=== PATIENT | male | born 1955 | race Caucasian/White ===

== ENCOUNTER 2017-05-06 08:47 | Emergency (ER) | payer BC, MEDICAID ==
[2017-05-06] MEDS ORDERED: Ondansetron 4 MG/2 ML SDV IVPUSH ONE (08:50)
[2017-05-06] MEDS ORDERED: HYDROmorphone 0.5 MG/0.5 ML Syringe IVPUSH ONE (08:50)
[2017-05-06] MEDS ORDERED: Sodium Chloride 0.9% 1,000 ML IV SCH ×4 (09:00→12:00)
[2017-05-06] MEDS ORDERED: Ketorolac 30 MG/ML SDV IVPUSH ONE (09:40)
--- NOTE | 2017-05-06 10:58 | EDM.PDOC ---
ED HPI GENERAL MEDICAL PROBLEM - General Chief Complaint: Flank Pain Stated Complaint: KIDNEY STONE? Time Seen by Provider: 05/06/17 09:00 Source of Information: Reports: Patient, Family History Limitations: Reports: No Limitations - History of Present Illness INITIAL COMMENTS - FREE TEXT/NARRATIVE: pt arrived from the clinic with severe rt flank pain. He has a history of kidney stones and had lithotripsey 1 year ago with a large unpassable stone on the rt. 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 Onset: Today, Other ( started about 8 am. ) Duration: Hour(s):, Getting Worse Location: Reports: Abdomen, Other ( rt flank area. ) Associated Symptoms: Reports: Nausea/Vomiting, Other ( very sweaty. ) Right Flank Pain Score (Numeric/FACES): 7 - Related Data Allergies Allergy/AdvReac Type Severity Reaction Status Date / Time No Known Allergies Allergy Verified 05/06/17 09:10 Home Meds: Home Meds Cholecalciferol (Vitamin D3) [Vitamin D] 1,000 unit PO DAILY 12/18/13 [History] Glucosamine [Glucosamine Sulfate] 500 mg PO DAILY 11/24/14 [History] Quercetin Dihydrate 1 gm PO DAILY 11/24/14 [History] Vitamin B Complex 1 each PO DAILY 11/24/14 [History] Past Medical History Genitourinary History: Reports: BPH, Renal Calculus Musculoskeletal History: Reports: Fracture - Past Surgical History GI Surgical History: Reports: Hernia Repair/Other, Other (See Below) Other GI Surgeries/Procedures: hernia repair x3 Male Surgical History: Reports: Kidney Stone Extraction Social & Family History - Tobacco Use Smoking Status *Q: Never Smoker Second Hand Smoke Exposure: No - Recreational Drug Use Recreational Drug Use: No ED ROS GENERAL - Review of Systems Review Of Systems: See Below Constitutional: Reports: No Symptoms HEENT: Reports: No Symptoms Respiratory: Reports: No Symptoms Cardiovascular: Reports: No Symptoms Endocrine: Reports: No Symptoms GI/Abdominal: Reports: Abdominal Pain : Reports: Flank Pain Musculoskeletal: Reports: No Symptoms Skin: Reports: No Symptoms Neurological: Reports: No Symptoms ED EXAM, GI/ABD - Physical Exam Exam: See Below Text/Narrative:: Pt has very severe rt flank pain. he has not noted any blood in the urine. he did have a urine done at the clinic which showed some rbcs. Exam Limited By: No Limitations General Appearance: Alert, Anxious, Severe Distress Eyes: Bilateral: Normal Appearance, EOMI Ears: Normal TMs Nose: Normal Inspection Throat/Mouth: Normal Inspection Head: Atraumatic Neck: Normal Inspection Respiratory/Chest: No Respiratory Distress Cardiovascular: Regular Rate, Rhythm GI/Abdominal Exam: Soft, Other ( severe rt flank pain. ) (Male) Exam: Normal Inspection Rectal (Males) Exam: Deferred Back Exam: Normal Inspection Extremities: Normal Inspection Neurological: Alert, Oriented, Normal Cognition Course - Vital Signs Last Recorded V/S: Last Vital Signs Temp 36.2 C 05/06/17 09:09 Pulse 65 05/06/17 12:24 Resp 16 05/06/17 12:24 BP 150/79 H 05/06/17 12:24 Pulse Ox 97 05/06/17 12:24 - Orders/Labs/Meds Orders: Active Orders 24 hr Category Date Time Status Abdomen Pelvis wo Cont [CT] Stat Exams 05/06/17 09:40 Taken Renal Comp [US] Stat Exams 05/06/17 11:58 Taken Sodium Chloride 0.9% [Normal Saline] 1,000 ml Med 05/06/17 09:00 Active IV ASDIRECTED Sodium Chloride 0.9% [Normal Saline] 1,000 ml Med 05/06/17 09:45 Active IV ASDIRECTED Sodium Chloride 0.9% [Normal Saline] 1,000 ml Med 05/06/17 10:45 Active IV ASDIRECTED Sodium Chloride 0.9% [Normal Saline] 1,000 ml Med 05/06/17 12:00 Active IV ASDIRECTED Medication Orders Sodium Chloride (Normal Saline) 1,000 mls @ 999 mls/hr IV ASDIRECTED CIELO Last Admin: 05/06/17 09:05 Dose: 999 mls/hr Sodium Chloride (Normal Saline) 1,000 mls @ 999 mls/hr IV ASDIRECTED CIELO Last Admin: 05/06/17 10:19 Dose: 999 mls/hr Sodium Chloride (Normal Saline) 1,000 mls @ 999 mls/hr IV ASDIRECTED CIELO Last Admin: 05/06/17 12:21 Dose: 999 mls/hr Sodium Chloride (Normal Saline) 1,000 mls @ 999 mls/hr IV ASDIRECTED CIELO Labs: Laboratory Tests 05/06/17 05/06/17 Range/Units 09:00 09:00 WBC 5.9 (4.5-11.0) K/uL RBC 5.02 (4.30-5.90) M/uL Hgb 15.3 H (12.0-15.0) g/dL Hct 44.8 (40.0-54.0) % MCV 89 (80-98) fL MCH 31 (27-31) pg MCHC 34 (32-36) % Plt Count 333 (150-400) K/uL Neut % (Auto) 66 (36-66) % Lymph % (Auto) 20 L (24-44) % [place] % (Auto) 11 H (2-6) % Eos % (Auto) 3 (2-4) % Baso % (Auto) 1 (0-1) % Sodium 139 L (140-148) mmol/L Potassium 4.1 (3.6-5.2) mmol/L Chloride 104 (100-108) mmol/L Carbon Dioxide 28 (21-32) mmol/L Anion Gap 11.1 (5.0-14.0) mmol/L BUN 17 (7-18) mg/dL Creatinine 1.2 (0.8-1.3) mg/dL Est Cr Clr Drug Dosing 57.60 mL/min Estimated GFR (MDRD) > 60 (>60) Glucose 121 H (74-106) mg/dL Calcium 8.9 (8.5-10.1) mg/dL Total Bilirubin 0.5 (0.2-1.0) mg/dL AST 23 (15-37) U/L ALT 36 (12-78) U/L Alkaline Phosphatase 59 (46-116) U/L Total Protein 7.4 (6.4-8.2) g/dL Albumin 4.3 (3.4-5.0) g/dL Globulin 3.1 (2.3-3.5) g/dL Albumin/Globulin Ratio 1.4 (1.2-2.2) Meds: Medications Generic Name Dose Route Start Last Admin Trade Name Freq PRN Reason Stop Dose Admin Sodium Chloride 1,000 mls @ 999 mls/hr 05/06/17 09:00 05/06/17 09:05 Normal Saline IV 999 mls/hr ASDIRECTED CIELO Administration Sodium Chloride 1,000 mls @ 999 mls/hr 05/06/17 09:45 05/06/17 10:19 Normal Saline IV 999 mls/hr ASDIRECTED CIELO Administration Sodium Chloride 1,000 mls @ 999 mls/hr 05/06/17 10:45 05/06/17 12:21 Normal Saline IV 999 mls/hr ASDIRECTED CIELO Administration Sodium Chloride 1,000 mls @ 999 mls/hr 05/06/17 12:00 Normal Saline IV ASDIRECTED CIELO Discontinued Medications Generic Name Dose Route Start Last Admin Trade Name Rik PRN Reason Stop Dose Admin Hydromorphone HCl 0.5 mg 05/06/17 08:50 05/06/17 09:02 Dilaudid IVPUSH 05/06/17 08:51 0.5 mg ONETIME ONE Administration Ketorolac Tromethamine 30 mg 05/06/17 09:40 05/06/17 09:44 Toradol IVPUSH 05/06/17 09:41 30 mg ONETIME ONE Administration Ondansetron HCl 4 mg 05/06/17 08:50 05/06/17 09:00 Zofran IVPUSH 05/06/17 08:51 4 mg ONETIME ONE Administration Tamsulosin HCl 0.4 mg 05/06/17 12:03 05/06/17 12:20 Flomax PO 05/06/17 12:04 0.4 mg ONETIME ONE Administration - Re-Assessments/Exams Free Text/Narrative Re-Assessment/Exam: 05/06/17 12:04 pt had normal appearing labs. He had a cat scan of the abdoman which revealed a 4-5 mm stone by the bladder. he also has an area in the left kidney which can, t be determined whether it is solid or cystic. 05/06/17 13:28 Us was done which showed this area in the left kidney is cystic and not solid. He was reassured. Departure - Departure Time of Disposition: 13:29 Disposition: Home, Self-Care 01 Condition: Fair Clinical Impression: Hydronephrosis with ureteral calculus - Discharge Information Referrals: PCP,None [Primary Care Provider] - Forms: ED Department Discharge Care Plan Goals: push fluids, If the stone has not passed in 4-5 days see urology, torodol 10mg qid as needed for pain, flomax .4 daily. Rtc if the pain get severe. strain all urine. - My Orders Last 24 Hours: My Active Orders 05/06/17 09:00 Sodium Chloride 0.9% [Normal Saline] 1,000 ml IV ASDIRECTED 05/06/17 09:40 Abdomen Pelvis wo Cont [CT] Stat 05/06/17 09:45 Sodium Chloride 0.9% [Normal Saline] 1,000 ml IV ASDIRECTED 05/06/17 10:45 Sodium Chloride 0.9% [Normal Saline] 1,000 ml IV ASDIRECTED 05/06/17 11:58 Renal Comp [US] Stat 05/06/17 12:00 Sodium Chloride 0.9% [Normal Saline] 1,000 ml IV ASDIRECTED - Assessment/Plan Last 24 Hours: My Active Orders 05/06/17 09:00 Sodium Chloride 0.9% [Normal Saline] 1,000 ml IV ASDIRECTED 05/06/17 09:40 Abdomen Pelvis wo Cont [CT] Stat 05/06/17 09:45 Sodium Chloride 0.9% [Normal Saline] 1,000 ml IV ASDIRECTED 05/06/17 10:45 Sodium Chloride 0.9% [Normal Saline] 1,000 ml IV ASDIRECTED 05/06/17 11:58 Renal Comp [US] Stat 05/06/17 12:00 Sodium Chloride 0.9% [Normal Saline] 1,000 ml IV ASDIRECTED
[2017-05-06] MEDS ORDERED: Tamsulosin 0.4 MG Cap.ER PO ONE (12:03)
[2017-05-06 12:24] VITALS: BP 150/79
== END 2017-05-06 13:50 | disposition home or self-care (01) ==
LOC: JP.ED 08:47
DX: N13.2 Hydronephrosis with renal and ureteral calculous obstruction (principal); Z98.890 Other specified postprocedural states; Z79.899 Other long term (current) drug therapy
CPT/HCPCS: 36415; 74176; 76770; 80053; 85025; 96361; 96374; 96375; 99284; A9270; J1170; J1885; J2405; J7040

== ENCOUNTER 2018-10-18 19:31 | Emergency (ER) | payer MEDICAID ==
[2018-10-18] MEDS ORDERED: Acetaminophen 500 MG Tab PO ONE (20:37)
[2018-10-18] MEDS ORDERED: Ondansetron 4 MG Tab.DIS PO ONE (20:37)
[2018-10-18 20:42] VITALS: BP 147/73
--- NOTE | 2018-10-18 20:42 | EDM.PDOC ---
ED HPI GENERAL MEDICAL PROBLEM - General Chief Complaint: Respiratory Problem Stated Complaint: FLU LIKE SYMPTOMS, FEVER Time Seen by Provider: 10/18/18 20:25 Source of Information: Reports: Patient, Old Records, RN History Limitations: Reports: No Limitations - History of Present Illness INITIAL COMMENTS - FREE TEXT/NARRATIVE: 63 yo male presents with fever, cough, and nausea. Sx's x 2.5 days. Has not seen his provider. Has not had an influenza vaccine. Not SOB. Weak. Body aches. Onset: Gradual Onset Date: 10/16/18 Duration: Day(s): (2+), Constant Location: Reports: Generalized Quality: Reports: Ache (body aches) Severity: Moderate Improves with: Reports: None Worsens with: Reports: None Context: Reports: Other (see HPI) Associated Symptoms: Reports: Cough, Fever/Chills, Malaise, Nausea/Vomiting. 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 Pain Score (Numeric/FACES): 8 - Related Data Allergies Allergy/AdvReac Type Severity Reaction Status Date / Time No Known Allergies Allergy Verified 10/18/18 20:04 Home Meds: Home Meds Cholecalciferol (Vitamin D3) [Vitamin D] 1,000 unit PO DAILY 12/18/13 [History] Glucosamine [Glucosamine Sulfate] 500 mg PO DAILY 11/24/14 [History] Quercetin Dihydrate 1 gm PO DAILY 11/24/14 [History] Vitamin B Complex 1 each PO DAILY 11/24/14 [History] Past Medical History Genitourinary History: Reports: BPH, Renal Calculus Musculoskeletal History: Reports: Fracture Endocrine/Metabolic History: Reports: Vitamin D Deficiency - Infectious Disease History Infectious Disease History: Reports: Influenza - Past Surgical History GI Surgical History: Reports: Hernia Repair/Other, Other (See Below) Other GI Surgeries/Procedures: hernia repair x3 Male Surgical History: Reports: Kidney Stone Extraction Social & Family History - Tobacco Use Smoking Status *Q: Never Smoker - Caffeine Use Caffeine Use: Reports: Coffee - Recreational Drug Use Recreational Drug Use: No ED ROS GENERAL - Review of Systems Review Of Systems: See Below Constitutional: Reports: Fever, Chills, Malaise HEENT: Reports: No Symptoms Respiratory: Reports: Cough. Denies: Shortness of Breath, Wheezing, Sputum, Hemoptysis Cardiovascular: Reports: No Symptoms Endocrine: Reports: No Symptoms GI/Abdominal: Reports: Nausea, Vomiting. Denies: Black Stool, Bloody Stool, Constipation, Diarrhea, Distension, Hematemesis, Hematochezia : Reports: No Symptoms Musculoskeletal: Reports: No Symptoms Skin: Reports: No Symptoms Neurological: Reports: No Symptoms Psychiatric: Reports: No Symptoms ED EXAM, GENERAL - Physical Exam Exam: See Below Exam Limited By: No Limitations General Appearance: Alert, WD/WN, Mild Distress Eye Exam: Bilateral Eye: Normal Inspection Ears: Normal External Exam, Normal Canal, Hearing Grossly Normal, Normal TMs Ear Exam: Bilateral Ear: Auricle Normal, Canal Normal, TM normal Nose: Normal Inspection, No Blood Throat/Mouth: Normal Inspection, Normal Lips, Normal Oropharynx, Normal Voice, No Airway Compromise Head: Atraumatic, Normocephalic Neck: Normal Inspection Respiratory/Chest: No Respiratory Distress, Lungs Clear, Normal Breath Sounds, No Accessory Muscle Use Cardiovascular: Regular Rate, Rhythm, No Edema GI/Abdominal: Normal Bowel Sounds, Soft, Non-Tender, No Distention Back Exam: Normal Inspection. No: CVA Tenderness (R), CVA Tenderness (L) Extremities: Normal Inspection, Normal Range of Motion, Non-Tender, No Pedal Edema Neurological: Alert, Oriented, CN II-XII Intact, Normal Cognition, No Motor/ Sensory Deficits Psychiatric: Normal Affect, Normal Mood Skin Exam: Warm, Dry, Intact, Normal Color, No Rash Lymphatic: No Adenopathy Course - Vital Signs Text/Narrative:: Orthostats normal Last Recorded V/S: Last Vital Signs Temp 38.7 C H 10/18/18 20:11 Pulse 72 10/18/18 20:11 Resp 16 10/18/18 20:11 BP 147/73 H 10/18/18 20:11 Pulse Ox 95 10/18/18 20:11 Orthostatic Blood Pressure [ 123/69 Standing] Orthostatic Blood Pressure [ 131/73 Sitting] Orthostatic Blood Pressure [ 113/61 Side, Left] - Orders/Labs/Meds Orders: Active Orders 24 hr Category Date Time Status Orthostatic Vital Signs [RC] ASDIRECTED Care 10/18/18 20:38 Active Oseltamivir [Tamiflu] Med 10/18/18 21:15 Once 75 mg PO ONETIME ONE Meds: Medications Discontinued Medications Generic Name Dose Route Start Last Admin Trade Name Rik PRN Reason Stop Dose Admin Acetaminophen 1,000 mg 10/18/18 20:37 10/18/18 20:43 Tylenol Extra Strength PO 10/18/18 20:38 1,000 mg ONETIME ONE Administration Ondansetron HCl 4 mg 10/18/18 20:37 10/18/18 20:43 Zofran Odt PO 10/18/18 20:38 4 mg ONETIME ONE Administration Departure - Departure Time of Disposition: 21:20 Disposition: Home, Self-Care 01 Condition: Fair Clinical Impression: Influenza A - Discharge Information *PRESCRIPTION DRUG MONITORING PROGRAM REVIEWED*: No *COPY OF PRESCRIPTION DRUG MONITORING REPORT IN PATIENT DOROTHY: No Instructions: Influenza, Adult, [id number] Referrals: Mele Diehl MD [Primary Care Provider] - Forms: ED Department Discharge Additional Instructions: Take Tamiflu 75 mg every 12 hrs until gone. Take acetaminophen 1000 mg every 6 hrs for pain/fever control. Drink ample fluids. Rest. Recheck if worse. Isolate yourself to reduce spread. Zofran as needed for nausea control. - My Orders Last 24 Hours: My Active Orders 10/18/18 20:38 Orthostatic Vital Signs [RC] ASDIRECTED 10/18/18 21:15 Oseltamivir [Tamiflu] 75 mg PO ONETIME ONE - Assessment/Plan Last 24 Hours: My Active Orders 10/18/18 20:38 Orthostatic Vital Signs [RC] ASDIRECTED 10/18/18 21:15 Oseltamivir [Tamiflu] 75 mg PO ONETIME ONE
[2018-10-18] MEDS ORDERED: Oseltamivir 75 MG Cap PO ONE (21:15)
== END 2018-10-18 21:34 | disposition home or self-care (01) ==
LOC: JP.ED 19:31
DX: J10.1 Influenza due to other identified influenza virus with other respiratory manifestations (principal); Z79.899 Other long term (current) drug therapy
CPT/HCPCS: 87804; 87804-59; 99283; A9270-GY

== ENCOUNTER 2020-12-26 16:10 | Emergency (ER) | payer MEDICARE, BC ==
[2020-12-26 16:25] VITALS: BP 108/49; PULSE 80
--- NOTE | 2020-12-26 17:10 | EDM.PDOC ---
ED HPI GENERAL MEDICAL PROBLEM - General Chief Complaint: Fever Stated Complaint: COVID SYMPTOMS Time Seen by Provider: 12/26/20 16:30 Source of Information: Reports: Patient History Limitations: Reports: No Limitations - History of Present Illness INITIAL COMMENTS - FREE TEXT/NARRATIVE: 65-year-old male presents concerned that he may have Covid. He has been sick for 5 days, fevers, cough and fatigue especially in the evening and nausea. He is unsure where he may have been exposed to Covid. He did not get the vaccination because he has some type of "autoimmune deficiency" however his primary provider sounds like a homeopathic based treatment in [facility]. He has been told he has some type of autoimmune disease which prevents him from getting the Covid vaccine. He takes a lot of vitamin treatment, in fact is on 5000 units of vitamin D a day because he "does not absorb it". Onset: Gradual Duration: Day(s): (5 days) Associated Symptoms: Reports: Cough (Cough is nonproductive), Fever/Chills, Loss of Appetite, Malaise, Shortness of Breath, Weakness, Other (Nausea but no vomiting) - Related Data Allergies Allergy/AdvReac Type Severity Reaction Status Date / Time No Known Allergies Allergy Verified 12/26/20 16:25 Home Meds: Home Meds Cholecalciferol (Vitamin D3) [Vitamin D] 1,000 unit PO DAILY 12/18/13 [History] Glucosamine [Glucosamine Sulfate] 500 mg PO DAILY 11/24/14 [History] Quercetin Dihydrate 1 gm PO DAILY 11/24/14 [History] Vitamin B Complex 1 each PO DAILY 11/24/14 [History] Past Medical History Genitourinary History: Reports: BPH, Renal Calculus Musculoskeletal History: Reports: Fracture Endocrine/Metabolic History: Reports: Vitamin D Deficiency - Infectious Disease History Infectious Disease History: Reports: Influenza - Past Surgical History GI Surgical History: Reports: Hernia Repair/Other, Other (See Below) Other GI Surgeries/Procedures: hernia repair x3 Male Surgical History: Reports: Kidney Stone Extraction Social & Family History - Tobacco Use Tobacco Use Status *Q: Never Tobacco User - Caffeine Use Caffeine Use: Reports: Coffee - Recreational Drug Use Recreational Drug Use: No ED ROS GENERAL - Review of Systems Review Of Systems: See Below Constitutional: Reports: Fever, Chills, Malaise, Decreased Appetite HEENT: Denies: Throat Pain Respiratory: Reports: Shortness of Breath, Cough. Denies: Sputum Cardiovascular: Denies: Chest Pain GI/Abdominal: Reports: Nausea. Denies: Vomiting Neurological: Reports: Headache, Weakness, Other (Extreme fatigue) ED EXAM, GENERAL - Physical Exam Exam: See Below Exam Limited By: No Limitations General Appearance: Alert, No Apparent Distress (Looks ill, uncomfortable but in no distress) Eye Exam: Bilateral Eye: Normal Inspection Head: Atraumatic Respiratory/Chest: Lungs Clear Cardiovascular: Regular Rate, Rhythm. No: Tachycardia GI/Abdominal: Non-Tender Extremities: No: Pedal Edema Neurological: Alert, Oriented Psychiatric: Flat Affect Skin Exam: Warm, Dry Course - Vital Signs Last Recorded V/S: Last Vital Signs Temp 102.5 F H 12/26/20 16:23 Pulse 80 12/26/20 16:23 Resp 16 12/26/20 16:23 BP 108/49 L 12/26/20 16:23 Pulse Ox 95 12/26/20 16:23 - Orders/Labs/Meds Labs: Laboratory Tests 12/26/20 12/26/20 12/26/20 Range/Units 17:02 17:14 17:14 WBC 3.8 L (4.5-11.0) K/uL RBC 4.83 (4.30-5.90) M/uL Hgb 14.5 (12.0-15.0) g/dL Hct 43.2 (40.0-54.0) % MCV 89 (80-98) fL MCH 30 (27-31) pg MCHC 34 (32-36) % Plt Count 158 (150-400) K/uL Neut % (Auto) 82.7 H (36-66) % Lymph % (Auto) 7.7 L (24-44) % [place] % (Auto) 9.3 H (2-6) % Eos % (Auto) 0.0 L (2-4) % Baso % (Auto) 0.3 (0-1) % Sodium 139 L (140-148) mmol/L Potassium 4.2 (3.6-5.2) mmol/L Chloride 101 (100-108) mmol/L Carbon Dioxide 24 (21-32) mmol/L Anion Gap 18.2 H (5.0-14.0) mmol/L BUN 17 (7-18) mg/dL Creatinine 1.3 (0.8-1.3) mg/dL Est Cr Clr Drug Dosing 50.21 mL/min Estimated GFR (MDRD) 55 L (>60) Glucose 116 H (74-106) mg/dL Calcium 8.1 L (8.5-10.1) mg/dL Total Bilirubin 0.4 (0.2-1.0) mg/dL AST 98 H D (15-37) U/L ALT 157 H (12-78) U/L Alkaline Phosphatase 74 (46-116) U/L Total Protein 6.9 (6.4-8.2) g/dL Albumin 3.6 (3.4-5.0) g/dL Globulin 3.3 (2.3-3.5) g/dL Albumin/Globulin Ratio 1.1 L (1.2-2.2) Influenza Type A RNA Negative (NEGATIVE) RSV RNA (INAAT) Negative (NEGATIVE) Influenza Type B RNA Negative (NEGATIVE) SARS-CoV-2 RNA (TONY) Positive H (NEGATIVE) Meds: Medications Discontinued Medications Generic Name Dose Route Start Last Admin Trade Name Freq PRN Reason Stop Dose Admin Sodium Chloride 1,000 mls @ 999 mls/hr 12/26/20 17:45 12/26/20 18:04 Normal Saline IV 999 mls/hr ASDIRECTED CIELO Administration - Re-Assessments/Exams Free Text/Narrative Re-Assessment/Exam: 12/26/20 17:09 CBC, CMP and Covid 4 Plex test was obtained. 12/26/20 18:06 CBC showed mild leukopenia typical of Covid. There was also mild elevation of his liver enzymes. 12/26/20 18:07 Electrolytes were generally normal, a 4 Plex study did confirm Covid. I talked with the family and they told me to avoid any antibody therapy if at all possible because it will build up as toxins in his body. I did not push the issue any further but did tell the patient that if he feels like he is getting sicker, becomes more short of breath, or needs further medical treatment the antibody therapy will still be available to him for the next 4 or 5 days. Departure - Departure Time of Disposition: 19:07 Disposition: Home, Self-Care 01 Clinical Impression: COVID-19 - Discharge Information Instructions: COVID-19 Referrals: PCP,None [Primary Care Provider] - Forms: ED Department Discharge Additional Instructions: Please use [email or web address] as a good resources on your COVID. Care Plan Goals: Rest, push fluids, ibuprofen will be helpful for generalized body aches and headaches and increase activity as tolerated. You will still qualify for antibody therapy for the next 4 or 5 days if you change your mind. Return to the emergency room if you become more short of breath. Sepsis Event Note (ED) - Evaluation Sepsis Screening Result: No Definite Risk
[2020-12-26] MEDS ORDERED: Sodium Chloride 0.9% 1,000 ML IV SCH (17:45)
[2020-12-26 17:46] LABS: CORONAVIRUS COVID-19 NAA POSITIVE (NEGATIVE)
== END 2020-12-26 19:06 | disposition home or self-care (01) ==
LOC: JP.ED 16:10
DX: U07.1 COVID-19 (principal)
CPT/HCPCS: 0241U; 36415; 80053; 85025; 99283; J7030

== ENCOUNTER 2020-12-30 07:43 | Observation (INO) | payer MEDICARE, BC ==
[2020-12-30] MEDS ORDERED: Ondansetron 4 MG/2 ML SDV IVPUSH ONE (08:14)
[2020-12-30] MEDS ORDERED: Sodium Chloride 0.9% 1,000 ML IV SCH ×2 (08:15→13:54)
--- NOTE | 2020-12-30 08:30 | EDM.PDOC ---
ED HPI GENERAL MEDICAL PROBLEM - General Chief Complaint: Fever Stated Complaint: COVID Time Seen by Provider: 12/30/20 08:25 Source of Information: Reports: Patient History Limitations: Reports: No Limitations - History of Present Illness INITIAL COMMENTS - FREE TEXT/NARRATIVE: pt arrived with a history of bein ill for 10 days. He was positive for Covid on Monday. He was offered monoclonal therapy and he did refuse that. He is not immunized. He states he has some auto immune problem. He has not been real sob. He does have a cough which is sig. Today he started vomiting and has not been able to hold anything down. Onset: Other (8-10 days ago pt began to feel ill) Duration: Day(s): Location: Reports: Chest, Abdomen, Generalized Associated Symptoms: Reports: Chest Pain, Diaphoresis, Fever/Chills, Nausea/Vomiting, Weakness Generalized Pain Score (Numeric/FACES): 7 - Related Data Allergies Allergy/AdvReac Type Severity Reaction Status Date / Time No Known Allergies Allergy Verified 12/30/20 07:59 Home Meds: Home Meds Cholecalciferol (Vitamin D3) [Vitamin D] 1,000 unit PO DAILY 12/18/13 [History] Glucosamine [Glucosamine Sulfate] 500 mg PO DAILY 11/24/14 [History] Quercetin Dihydrate 1 gm PO DAILY 11/24/14 [History] Vitamin B Complex 1 each PO DAILY 11/24/14 [History] Past Medical History Genitourinary History: Reports: BPH, Renal Calculus Musculoskeletal History: Reports: Fracture Endocrine/Metabolic History: Reports: Vitamin D Deficiency - Infectious Disease History Infectious Disease History: Reports: Influenza, Novel Coronavirus - Past Surgical History GI Surgical History: Reports: Hernia Repair/Other, Other (See Below) Other GI Surgeries/Procedures: hernia repair x3 Male Surgical History: Reports: Kidney Stone Extraction Social & Family History - Tobacco Use Tobacco Use Status *Q: Never Tobacco User - Caffeine Use Caffeine Use: Reports: Coffee - Recreational Drug Use Recreational Drug Use: No ED ROS GENERAL - Review of Systems Review Of Systems: See Below Constitutional: Reports: Fever, Chills, Malaise, Weakness, Decreased Appetite HEENT: Reports: No Symptoms Respiratory: Reports: Cough Cardiovascular: Reports: No Symptoms Endocrine: Reports: No Symptoms GI/Abdominal: Reports: Abdominal Pain, Decreased Appetite, Nausea, Vomiting Musculoskeletal: Reports: No Symptoms Skin: Reports: No Symptoms Neurological: Reports: Weakness Psychiatric: Reports: No Symptoms ED EXAM, GENERAL - Physical Exam Exam: See Below Free Text/Narrative:: pt arrived with a history of vomiting starting this am. He has crampy abdomanal pain. Exam Limited By: No Limitations General Appearance: Alert, Moderate Distress Ears: Normal TMs Nose: Normal Inspection Throat/Mouth: Normal Inspection Head: Atraumatic Neck: Normal Inspection Respiratory/Chest: No Respiratory Distress Cardiovascular: Regular Rate, Rhythm, Tachycardia GI/Abdominal: Soft, Other (mild tenderness present. ) (Male) Exam: Deferred Rectal (Males) Exam: Deferred Back Exam: Normal Inspection Extremities: Normal Inspection Neurological: Alert, Oriented, Normal Cognition, Other ( very weak appearing. ) Psychiatric: Anxious Course - Vital Signs Last Recorded V/S: Last Vital Signs Temp 38.2 C H 12/30/20 07:54 Pulse 73 12/30/20 07:54 Resp 18 12/30/20 07:54 BP 132/72 12/30/20 07:54 Pulse Ox 97 12/30/20 07:54 - Orders/Labs/Meds Orders: Active Orders 24 hr Category Date Time Status UA W/MICROSCOPIC [URIN] Urgent Lab 12/30/20 08:05 Ordered Sodium Chloride 0.9% [Normal Saline] 1,000 ml Med 12/30/20 08:15 Active IV ASDIRECTED Medication Orders Sodium Chloride (Normal Saline) 1,000 mls @ 75 mls/hr IV ASDIRECTED CIELO Last Admin: 12/30/20 08:34 Dose: 75 mls/hr Documented by: PREILOR Labs: Laboratory Tests 12/30/20 12/30/20 12/30/20 Range/Units 08:34 08:34 08:34 WBC 4.0 L (4.5-11.0) K/uL RBC 4.82 (4.30-5.90) M/uL Hgb 14.5 (12.0-15.0) g/dL Hct 43.0 (40.0-54.0) % MCV 89 (80-98) fL MCH 30 (27-31) pg MCHC 34 (32-36) % Plt Count 191 (150-400) K/uL Neut % (Auto) 86.6 H (36-66) % Lymph % (Auto) 6.8 L (24-44) % [place] % (Auto) 6.3 H (2-6) % Eos % (Auto) 0.0 L (2-4) % Baso % (Auto) 0.3 (0-1) % D-Dimer, Quantitative 1138.43 H (0.0-500.0) ng/mL Sodium 139 L (140-148) mmol/L Potassium 4.5 (3.6-5.2) mmol/L Chloride 101 (100-108) mmol/L Carbon Dioxide 26 (21-32) mmol/L Anion Gap 16.5 H (5.0-14.0) mmol/L BUN 14 (7-18) mg/dL Creatinine 1.1 (0.8-1.3) mg/dL Est Cr Clr Drug Dosing 59.33 mL/min Estimated GFR (MDRD) > 60 (>60) Glucose 113 H (74-106) mg/dL Calcium 7.9 L (8.5-10.1) mg/dL Total Bilirubin 0.3 (0.2-1.0) mg/dL AST 88 H (15-37) U/L ALT 171 H (12-78) U/L Alkaline Phosphatase 84 (46-116) U/L C-Reactive Protein 5.83 H (0.0-0.3) mg/dL Total Protein 6.3 L (6.4-8.2) g/dL Albumin 3.0 L (3.4-5.0) g/dL Globulin 3.3 (2.3-3.5) g/dL Albumin/Globulin Ratio 0.9 L (1.2-2.2) Meds: Medications Generic Name Dose Route Start Last Admin Trade Name Freq PRN Reason Stop Dose Admin Sodium Chloride 1,000 mls @ 75 mls/hr 12/30/20 08:15 12/30/20 08:34 Normal Saline IV 75 mls/hr ASDIRECTED CIELO Administration Discontinued Medications Generic Name Dose Route Start Last Admin Trade Name Freq PRN Reason Stop Dose Admin Ondansetron HCl 4 mg 12/30/20 08:14 12/30/20 08:34 Ondansetron 4 Mg/2 Ml Sdv IVPUSH 12/30/20 08:15 4 mg ONETIME ONE Administration - Re-Assessments/Exams Free Text/Narrative Re-Assessment/Exam: 12/30/20 12:17 pt has bilateral infiltates on his chest xray. He has not had any sig intake for the past 2-3 days. He started vomiting everything this am. His is very ill at home and his kids are taking care of her. He has a elevated crp, elevated ddimer. Departure - Departure Time of Disposition: 12:19 Disposition: Admitted As Inpatient 65 Condition: Fair Clinical Impression: COVID-19, Bilateral pneumonia, Dehydration - Discharge Information Referrals: PCP,None [Primary Care Provider] - Forms: ED Department Discharge Care Plan Goals: admit to Dr Nguyễn. Sepsis Event Note (ED) - Evaluation Sepsis Screening Result: No Definite Risk - Focused Exam Vital Signs: Vital Signs Temp Pulse Resp BP Pulse Ox 12/30/20 07:54 38.2 C H 73 18 132/72 97 - My Orders Last 24 Hours: My Active Orders 12/30/20 08:05 UA W/MICROSCOPIC [URIN] Urgent 12/30/20 08:15 Sodium Chloride 0.9% [Normal Saline] 1,000 ml IV ASDIRECTED - Assessment/Plan Last 24 Hours: My Active Orders 12/30/20 08:05 UA W/MICROSCOPIC [URIN] Urgent 12/30/20 08:15 Sodium Chloride 0.9% [Normal Saline] 1,000 ml IV ASDIRECTED
--- NOTE | 2020-12-30 11:28 | CR ---
CHEST: Portable 12/30/2020 at 8:46 AM CLINICAL HISTORY:Covid COMPARISON:None FINDINGS: Patient is patchy bilateral lower lobe infiltrates. Heart and pulmonary vascularity are normal. There are atherosclerotic changes in the aorta. Impression: Bilateral lower lobe pneumonic infiltrates.
--- NOTE | 2020-12-30 12:26 | PCM.HP.2 ---
H&P History of Present Illness - General Date of Service: 12/30/20 Admit Problem/Dx: Admission Diagnosis/Problem Admission Diagnosis/Problem Weakness Source of Information: Patient, Provider, RN Notes Reviewed History Limitations: Reports: No Limitations - History of Present Illness Initial Comments - Free Text/Narative: Mr. Guzman is a 65-year-old gentleman who was admitted to observation status through the emergency department for management of weakness and dehydration secondary to COVID-19 infection. He has had symptoms now for the past 11 days. Most recently has experienced nausea, vomiting, weakness, myalgias, and shortness of breath. He was seen and evaluated in the emergency department 3 days ago and was found to be Covid positive. He has not received a Covid vaccination and when he was seen 3 days ago was offered monoclonal antibody infusion which he refused. Over the past 3 days he is experienced more nausea vomiting with minimal oral intake. On evaluation today white blood cell count is normal, D-dimer and CRP are both elevated. Respiratory rate is stable and he has adequate oxygenation on room air. Despite interventions he has ongoing symp toms of nausea and is unable to keep himself hydrated with oral intake. Generalized Pain Score (Numeric/FACES): 7 - Related Data Allergies/Adverse Reactions: Allergies Allergy/AdvReac Type Severity Reaction Status Date / Time No Known Allergies Allergy Verified 12/30/20 07:59 Home Medications: Home Meds Cholecalciferol (Vitamin D3) [Vitamin D] 1,000 unit PO DAILY 12/18/13 [History] Glucosamine [Glucosamine Sulfate] 500 mg PO DAILY 11/24/14 [History] Quercetin Dihydrate 1 gm PO DAILY 11/24/14 [History] Vitamin B Complex 1 each PO DAILY 11/24/14 [History] Past Medical History Genitourinary History: Reports: BPH, Renal Calculus Musculoskeletal History: Reports: Fracture Endocrine/Metabolic History: Reports: Vitamin D Deficiency - Infectious Disease History Infectious Disease History: Reports: Influenza, Novel Coronavirus - Past Surgical History GI Surgical History: Reports: Hernia Repair/Other, Other (See Below) Other GI Surgeries/Procedures: hernia repair x3 Male Surgical History: Reports: Kidney Stone Extraction Social & Family History - Tobacco Use Tobacco Use Status *Q: Never Tobacco User - Caffeine Use Caffeine Use: Reports: Coffee - Recreational Drug Use Recreational Drug Use: No H&P Review of Systems - Review of Systems: Review Of Systems: See Below General: Reports: Chills, Malaise, Weakness, Fatigue, Diaphoresis, Decreased Appetite. Denies: Fever HEENT: Reports: No Symptoms Pulmonary: Reports: Shortness of Breath, Cough. Denies: Wheezing, Pleuritic Ch est Pain, Sputum, Hemoptysis Cardiovascular: Reports: Dyspnea on Exertion. Denies: Chest Pain, Palpitations, Orthopnea, PND, Edema, Lightheadedness Gastrointestinal: Reports: Abdominal Pain, Decreased Appetite, Nausea, Vomiting. Denies: Constipation, Diarrhea, Difficulty Swallowing, Distension, Hematemesis, Hematochezia, Melena Genitourinary: Reports: No Symptoms Musculoskeletal: Reports: Muscle Pain, Muscle Stiffness Skin: Reports: No Symptoms Psychiatric: Reports: No Symptoms Neurological: Reports: No Symptoms Hematologic/Lymphatic: Reports: No Symptoms Immunologic: Reports: No Symptoms Exam - Exam Exam: See Below - Vital Signs Vital Signs: Last Vital Signs Temp 100.8 F H 12/30/20 07:54 Pulse 73 12/30/20 07:54 Resp 18 12/30/20 07:54 BP 132/72 12/30/20 07:54 Pulse Ox 97 12/30/20 07:54 Weight: 140 lb - Exam Quality Assessment: DVT Prophylaxis. No: Supplemental Oxygen General: Alert, Oriented, Cooperative, Moderate Distress HEENT: Conjunctiva Clear, Hearing Intact, Normal Nasal Septum, Posterior Pharynx Clear, Pupils Equal. No: Mucosa Moist & [place] Neck: Supple, Trachea Midline, +2 Carotid Pulse wo Bruit Lungs: Clear to Auscultation, Normal Respiratory Effort. No: Crackles, Rales, Rhonchi, Wheezing Cardiovascular: Regular Rate, Regular Rhythm, Normal S1, Normal S2. No: Systolic Murmur, Diastolic Murmur GI/Abdominal Exam: Soft, No Organomegaly, Tender. No: Distended, Guarding, Rigid, Rebound Back Exam: Normal Inspection, Full Range of Motion Extremities: Non-Tender, No Pedal Edema Skin: Warm, Dry, Intact Neurological: Cranial Nerves Intact, Strength Equal Bilateral, Normal Speech, Normal Tone, Sensation Intact. No: Focal Deficit Neuro Extensive - Mental Status: Alert, Oriented x3, Normal Mood/Affect, Normal Cognition, Memory Intact - Patient Data Lab Results Last 24 hrs: Laboratory Results - last 24 hr 12/30/20 12/30/2021 Range/Units 08:34 08:34 08:34 WBC 4.0 L (4.5-11.0) K/uL RBC 4.82 (4.30-5.90) M/uL Hgb 14.5 (12.0-15.0) g/dL Hct 43.0 (40.0-54.0) % MCV 89 (80-98) fL MCH 30 (27-31) pg MCHC 34 (32-36) % Plt Count 191 (150-400) K/uL Neut % (Auto) 86.6 H (36-66) % Lymph % (Auto) 6.8 L (24-44) % [place] % (Auto) 6.3 H (2-6) % Eos % (Auto) 0.0 L (2-4) % Baso % (Auto) 0.3 (0-1) % D-Dimer, Quantitative 1138.43 H (0.0-500.0) ng/mL Sodium 139 L (140-148) mmol/L Potassium 4.5 (3.6-5.2) mmol/L Chloride 101 (100-108) mmol/L Carbon Dioxide 26 (21-32) mmol/L Anion Gap 16.5 H (5.0-14.0) mmol/L BUN 14 (7-18) mg/dL Creatinine 1.1 (0.8-1.3) mg/dL Est Cr Clr Drug Dosing 59.33 mL/min Estimated GFR (MDRD) > 60 (>60) Glucose 113 H (74-106) mg/dL Calcium 7.9 L (8.5-10.1) mg/dL Total Bilirubin 0.3 (0.2-1.0) mg/dL AST 88 H (15-37) U/L ALT 171 H (12-78) U/L Alkaline Phosphatase 84 (46-116) U/L C-Reactive Protein 5.83 H (0.0-0.3) mg/dL Total Protein 6.3 L (6.4-8.2) g/dL Albumin 3.0 L (3.4-5.0) g/dL Globulin 3.3 (2.3-3.5) g/dL Albumin/Globulin Ratio 0.9 L (1.2-2.2) Result Diagrams: 12/30/20 08:34 12/30/20 08:34 Sepsis Event Note - Evaluation Sepsis Screening Result: No Definite Risk - Focused Exam Vital Signs: Vital Signs Temp Pulse Resp BP Pulse Ox 12/30/20 07:54 100.8 F H 73 18 132/72 97 *Q Meaningful Use (ADM) - VTE Risk Assess *Q Each Risk Factor Represents 1 Point: Serious lung disease including pneumonia Total Score 1 Point Risk Factors: 1 Each Risk Factor Represents 2 Points: Age 60 - 74 Years Total Score 2 Point Risk Factors: 2 Each Risk Factor Represents 3 Points: None Total Score 3 Point Risk Factors: 0 Each Risk Factor Represents 5 Points: None Total Score 5 Point Risk Factors: 0 Venous Thromboembolism Risk Factor Score *Q: 3 Problem List Initiated/Reviewed/Updated: Yes Orders Last 24hrs: Active Orders 24 hr Category Date Time Status Patient Status Manage Transfer [TRANSFER] Routine ADT 12/30/20 12:22 Ordered UA W/MICROSCOPIC [URIN] Urgent Lab 12/30/20 08:05 Ordered Sodium Chloride 0.9% [Normal Saline] 1,000 ml Med 12/30/20 08:15 Active IV ASDIRECTED Resuscitation Status Routine Resus Stat 12/30/20 12:23 Ordered Medication Orders Sodium Chloride (Normal Saline) 1,000 mls @ 75 mls/hr IV ASDIRECTED CIELO Last Admin: 12/30/20 08:34 Dose: 75 mls/hr Documented by: PREILOR Assessment/Plan Comment:: ASSESSMENT AND PLAN WEAKNESS AND DEHYDRATION-secondary to GI effects of COVID-19 infection -Medication as needed for nausea -Cautious IV hydration COVID-19 INFECTION-symptoms present for 11 days, he is now outside the window of being able to use monoclonal antibody. Subjectively feels short of breath but has adequate oxygenation on room air. Not a candidate for specific medical therapy at this time. -Supportive care -DVT prophylaxis as below -Monitor for hypoxia MAINTENANCE ISSUES -DVT prophylaxis; Lovenox 40 mg subcu daily -GI prophylaxis; not indicated -Casas catheter; not indicated -Nutrition; regular diet -Nicotine dependence; not required CODE STATUS-FULL CODE ADMISSION STATUS-this patient will be admitted to observation status, expect no more than a one night hospital stay for evaluation and management of problems as outlined above. DISPOSITION-anticipate discharge to home after the hospital stay. PRIMARY CARE PROVIDER-Dr. Diehl - Mortality Measure Prognosis:: Good
[2020-12-30] MEDS ORDERED: Albuterol 8 GM Inhaler INH ONE (12:51)
[2020-12-30] MEDS ORDERED: Polyethylene Glycol 3350 Powder 17 GM Packet PO PRN (13:54)
[2020-12-30] MEDS ORDERED: Sodium Chloride 0.9% 10 ML Syringe FLUSH PRN (13:54)
[2020-12-30] MEDS: Ondansetron 4 MG/2 ML SDV IV PRN (14:09)
[2020-12-30] MEDS: Acetaminophen 325 MG Tab PO PRN (14:13)
[2020-12-30] MEDS: Enoxaparin 40 MG/0.4 ML Syringe SUBCUT SCH (14:13)
[2020-12-31] MEDS: Acetaminophen 325 MG Tab PO PRN ×4 (01:04→22:44)
[2020-12-31] MEDS: Ondansetron 4 MG/2 ML SDV IV PRN (01:09)
[2020-12-31] MEDS: Enoxaparin 40 MG/0.4 ML Syringe SUBCUT SCH (15:30)
--- NOTE | 2020-12-31 16:00 | PCM.PN ---
- General Info Date of Service: 12/31/20 Subjective Update: Mr. Guzman has improved somewhat since admission. Nausea has essentially resolved and oral intake seems to be improving. He has had recurrent fever and remains very weak, with myalgias. - Review of Systems General: Reports: Fever, Weakness, Fatigue, Chills Pulmonary: Reports: Shortness of Breath, Cough. Denies: Pleuritic Chest Pain, Sputum, Hemoptysis, Wheezing Cardiovascular: Reports: Dyspnea on Exertion. Denies: Chest Pain, Palpitations, Orthopnea, PND, Edema, Lightheadedness Gastrointestinal: Reports: No Symptoms Genitourinary: Reports: No Symptoms - Patient Data Vitals - Most Recent: Last Vital Signs Temp 98.4 F 12/31/20 14:59 Pulse 59 L 12/31/20 14:59 Resp 18 12/31/20 14:59 BP 124/63 12/31/20 14:59 Pulse Ox 96 12/31/20 14:59 Weight - Most Recent: 148 lb 12.816 oz I&O - Last 24 Hours: Intake & Output 12/31/20 12/31/20 12/31/20 06:59 14:59 22:59 Intake Total 648 260 Balance 648 260 Lab Results Last 24 Hours: Laboratory Results - last 24 hr 12/31/20 12/31/20 Range/Units 04:33 04:33 WBC 3.1 L (4.5-11.0) K/uL RBC 4.51 (4.30-5.90) M/uL Hgb 13.6 (12.0-15.0) g/dL Hct 40.4 (40.0-54.0) % MCV 90 (80-98) fL MCH 30 (27-31) pg MCHC 34 (32-36) % Plt Count 216 (150-400) K/uL Neut % (Auto) 75.1 H (36-66) % Lymph % (Auto) 14.6 L (24-44) % [place] % (Auto) 10.0 H (2-6) % Eos % (Auto) 0.0 L (2-4) % Baso % (Auto) 0.3 (0-1) % Sodium 141 (140-148) mmol/L Potassium 4.3 (3.6-5.2) mmol/L Chloride 105 (100-108) mmol/L Carbon Dioxide 26 (21-32) mmol/L Anion Gap 10.5 (5.0-14.0) mmol/L BUN 18 (7-18) mg/dL Creatinine 1.1 (0.8-1.3) mg/dL Est Cr Clr Drug Dosing 57.46 mL/min Estimated GFR (MDRD) > 60 (>60) Glucose 112 H (74-106) mg/dL Calcium 7.5 L (8.5-10.1) mg/dL Med Orders - Current: Current Medications Acetaminophen (Acetaminophen 325 Mg Tab) 650 mg PO Q4H PRN PRN Reason: Pain (Mild 1-3)/fever Last Admin: 12/31/20 10:59 Dose: 650 mg Documented by: Enoxaparin Sodium (Enoxaparin 40 Mg/0.4 Ml Syringe) 40 mg SUBCUT Q24H [facility] Last Admin: 12/31/20 15:30 Dose: 40 mg Documented by: Ondansetron HCl (Ondansetron 4 Mg/2 Ml Sdv) 4 mg IV Q4H PRN PRN Reason: Nausea/Vomiting Last Admin: 12/31/20 01:09 Dose: 4 mg Documented by: Polyethylene Glycol (Polyethylene Glycol 3350 Powder 17 Gm Packet) 17 gm PO DAILY PRN PRN Reason: Constipation Sodium Chloride (Sodium Chloride 0.9% 10 Ml Syringe) 10 ml FLUSH ASDIRECTED PRN PRN Reason: Keep Vein Open Discontinued Medications Albuterol (Albuterol 8 Gm Inhaler) 2 gm INH ONETIME ONE Stop: 12/30/20 12:52 Last Admin: 12/30/20 13:37 Dose: 2 puff Documented by: Sodium Chloride (Normal Saline) 1,000 mls @ 75 mls/hr IV ASDIRECTED CIELO Last Admin: 12/30/20 08:34 Dose: 75 mls/hr Documented by: Sodium Chloride (Normal Saline) 1,000 mls @ 50 mls/hr IV ASDIRECTED CIELO Last Admin: 12/31/20 12:26 Dose: 50 mls/hr Documented by: Ondansetron HCl (Ondansetron 4 Mg/2 Ml Sdv) 4 mg IVPUSH ONETIME ONE Stop: 12/30/20 08:15 Last Admin: 12/30/20 08:34 Dose: 4 mg Documented by: - Exam Quality Assessment: DVT Prophylaxis. No: Supplemental Oxygen General: Alert, Oriented, Cooperative, Moderate Distress Lungs: Normal Respiratory Effort, Rales. No: Crackles, Rhonchi, Wheezing Cardiovascular: Regular Rate, Regular Rhythm, No Murmurs GI/Abdominal Exam: Soft, Non-Tender, No Organomegaly, No Distention Extremities: Non-Tender, No Pedal Edema - Patient Data Lab Results Last 24 hrs: Laboratory Results - last 24 hr 12/31/20 12/31/20 Range/Units 04:33 04:33 WBC 3.1 L (4.5-11.0) K/uL RBC 4.51 (4.30-5.90) M/uL Hgb 13.6 (12.0-15.0) g/dL Hct 40.4 (40.0-54.0) % MCV 90 (80-98) fL MCH 30 (27-31) pg MCHC 34 (32-36) % Plt Count 216 (150-400) K/uL Neut % (Auto) 75.1 H (36-66) % Lymph % (Auto) 14.6 L (24-44) % [place] % (Auto) 10.0 H (2-6) % Eos % (Auto) 0.0 L (2-4) % Baso % (Auto) 0.3 (0-1) % Sodium 141 (140-148) mmol/L Potassium 4.3 (3.6-5.2) mmol/L Chloride 105 (100-108) mmol/L Carbon Dioxide 26 (21-32) mmol/L Anion Gap 10.5 (5.0-14.0) mmol/L BUN 18 (7-18) mg/dL Creatinine 1.1 (0.8-1.3) mg/dL Est Cr Clr Drug Dosing 57.46 mL/min Estimated GFR (MDRD) > 60 (>60) Glucose 112 H (74-106) mg/dL Calcium 7.5 L (8.5-10.1) mg/dL Result Diagrams: 12/31/20 04:33 12/31/20 04:33 Sepsis Event Note - Evaluation Sepsis Screening Result: No Definite Risk - Focused Exam Vital Signs: Vital Signs Temp Temp Pulse Resp BP Pulse Ox 12/31/20 14:59 98.4 F 59 L 18 124/63 96 12/31/20 10:59 99 F 12/31/20 10:52 99.7 F 63 18 151/63 H 96 12/31/20 07:00 98.3 F 53 L 16 129/61 97 - Problem List Review Problem List Initiated/Reviewed/Updated: Yes - My Orders Last 24 Hours: My Active Orders 12/31/20 15:56 Convert IV to Saline Lock [OM.PC] Routine - Plan Plan:: ASSESSMENT AND PLAN WEAKNESS AND DEHYDRATION-improved from admission -Medication as needed for nausea -Saline lock IV COVID-19 INFECTION-symptoms present for 11 days, he is now outside the window of being able to use monoclonal antibody. Subjectively feels short of breath but has adequate oxygenation on room air. Not a candidate for specific medical therapy at this time. -Supportive care -DVT prophylaxis as below -Monitor for hypoxia MAINTENANCE ISSUES -DVT prophylaxis; Lovenox 40 mg subcu daily -GI prophylaxis; not indicated -Casas catheter; not indicated -Nutrition; regular diet -Nicotine dependence; not required CODE STATUS-FULL CODE ADMISSION STATUS-this patient will be admitted to observation status, expect no more than a one night hospital stay for evaluation and management of problems as outlined above. DISPOSITION-anticipate discharge to home after the hospital stay. PRIMARY CARE PROVIDER-Dr. Diehl
[2021-01-01 03:06] VITALS: PULSE 56
[2021-01-01] MEDS: Acetaminophen 325 MG Tab PO PRN ×2 (03:07→07:58)
[2021-01-01 07:55] VITALS: BP 140/60
--- NOTE | 2021-01-01 10:19 | PCM.DCSUM1 ---
Discharge Summary - Hospital Course Brief History: Mr. Guzman is a 65-year-old gentleman who was admitted to observation status, through the emergency department with dehydration and nausea secondary to COVID-19 infection. - Discharge Data Discharge Date: 01/01/21 Discharge Disposition: Home, Self-Care 01 Condition: Fair - Referral to Home Health Primary Care Physician: PCP None - Discharge Diagnosis/Problem(s) (1) COVID-19 SNOMED Code(s): 327179883 ICD Code: U07.1 - COVID-19 Status: Acute Current Visit: Yes (2) Bilateral pneumonia SNOMED Code(s): 800294772 ICD Code: J18.9 - PNEUMONIA, UNSPECIFIED ORGANISM Status: Acute Current Visit: Yes (3) Dehydration SNOMED Code(s): 32320646 ICD Code: E86.0 - DEHYDRATION Status: Acute Current Visit: Yes - Patient Summary/Data Hospital Course: Mr. Guzman is a 65-year-old gentleman who was admitted to observation status through the emergency department for management of weakness and dehydration secondary to COVID-19 infection. He has had symptoms now for the past 11 days. Most recently has experienced nausea, vomiting, weakness, myalgias, and shortness of breath. He was seen and evaluated in the emergency department 3 days ago and was found to be Covid positive. He has not received a Covid vaccination and when he was seen 3 days ago was offered monoclonal antibody infusion which he refused. Over the past 3 days he is experienced more nausea vomiting with minimal oral intake. On evaluation today white blood cell count is normal, D-dimer and CRP are both elevated. Respiratory rate is stable and he has adequate oxygenation on room air. Despite interventions he has ongoing symptoms of nausea and is unable to keep himself hydrated with oral intake. On admission he was given cautious IV fluids for hydration as well as medication for nausea. He did have recurrent temperature elevations during hospitalization and was treated with Tylenol as needed. Over the next 2 days of observation stay he did improve with this management. He continued to experience symptoms of myalgias and headache. He will continue use of Tylenol as well as Zofran at home for management of his symptoms. During hospitalization he showed no evidence of significant respiratory compromise and oxygenation remained adequate on room air. Activity will be as tolerated and he will resume his usual diet. If he develops symptoms of increased shortness of breath will come back in for reassessment. - Patient Instructions Diet: Usual Diet as Tolerated Activity: As Tolerated - Discharge Plan *PRESCRIPTION DRUG MONITORING PROGRAM REVIEWED*: Not Applicable *COPY OF PRESCRIPTION DRUG MONITORING REPORT IN PATIENT DOROTHY: Not Applicable Prescriptions/Med Rec: Ondansetron [Zofran ODT] 4 mg PO Q4H PRN #16 tab.dis PRN Reason: Nausea Home Medications: Home Meds Cholecalciferol (Vitamin D3) [Vitamin D3] 1,000 unit PO DAILY 12/18/13 [History] Glucosamine [Glucosamine Sulfate] 500 mg PO DAILY 11/24/14 [History] Quercetin Dihydrate 1 gm PO DAILY 11/24/14 [History] Vitamin B Complex 1 each PO DAILY 11/24/14 [History] Acetaminophen [Tylenol] 650 mg PO Q4H PRN tablet 01/01/21 [Rx] Ondansetron [Zofran ODT] 4 mg PO Q4H PRN #16 tab.dis 01/01/21 [Rx] Referrals: Mele Diehl MD [Physician] - - Discharge Summary/Plan Comment DC Time >30 min.: No - Patient Data Vitals - Most Recent: Last Vital Signs Temp 98.2 F 01/01/21 07:58 Pulse 56 L 01/01/21 07:53 Resp 16 01/01/21 07:53 BP 140/60 01/01/21 07:53 Pulse Ox 96 01/01/21 07:53 Weight - Most Recent: 148 lb 12.816 oz I&O - Last 24 hours: Intake & Output 12/31/20 01/01/21 01/01/21 22:59 06:59 14:59 Intake Total 1700 Balance 1700 Med Orders - Current: Current Medications Acetaminophen (Acetaminophen 325 Mg Tab) 650 mg PO Q4H PRN PRN Reason: Pain (Mild 1-3)/fever Last Admin: 01/01/21 07:58 Dose: 650 mg Documented by: Enoxaparin Sodium (Enoxaparin 40 Mg/0.4 Ml Syringe) 40 mg SUBCUT Q24H CIELO Last Admin: 12/31/20 15:30 Dose: 40 mg Documented by: Ondansetron HCl (Ondansetron 4 Mg/2 Ml Sdv) 4 mg IV Q4H PRN PRN Reason: Nausea/Vomiting Last Admin: 12/31/20 01:09 Dose: 4 mg Documented by: Polyethylene Glycol (Polyethylene Glycol 3350 Powder 17 Gm Packet) 17 gm PO DAILY PRN PRN Reason: Constipation Sodium Chloride (Sodium Chloride 0.9% 10 Ml Syringe) 10 ml FLUSH ASDIRECTED PRN PRN Reason: Keep Vein Open Discontinued Medications Albuterol (Albuterol 8 Gm Inhaler) 2 gm INH ONETIME ONE Stop: 12/30/20 12:52 Last Admin: 12/30/20 13:37 Dose: 2 puff Documented by: Sodium Chloride (Normal Saline) 1,000 mls @ 75 mls/hr IV ASDIRECTED CIELO Last Admin: 12/30/20 08:34 Dose: 75 mls/hr Documented by: Sodium Chloride (Normal Saline) 1,000 mls @ 50 mls/hr IV ASDIRECTED CIELO Last Admin: 12/31/20 12:26 Dose: 50 mls/hr Documented by: Ondansetron HCl (Ondansetron 4 Mg/2 Ml Sdv) 4 mg IVPUSH ONETIME ONE Stop: 12/30/20 08:15 Last Admin: 12/30/20 08:34 Dose: 4 mg Documented by: - Exam General: Reports: Alert, Oriented, Cooperative, Moderate Distress Lungs: Reports: Normal Respiratory Effort, Rales. Denies: Crackles, Rhonchi, Wheezing Cardiovascular: Reports: Regular Rate, Regular Rhythm, No Murmurs GI/Abdominal Exam: Soft, Non-Tender, No Organomegaly, No Distention Extremities: Non-Tender, No Pedal Edema
== END 2021-01-01 12:30 | disposition home or self-care (01) ==
LOC: JP.ED 07:43 → JP.MS 12:22
PROVIDERS: ADMIT Hospitalist; ATTEND Hospitalist
DX: U07.1 COVID-19 (principal); E86.0 Dehydration; J12.82 Pneumonia due to coronavirus disease 2019; Z79.899 Other long term (current) drug therapy; E55.9 Vitamin D deficiency, unspecified
CPT/HCPCS: 36415; 71045; 80048; 80053; 85025; 85379; 86140; 94640; A9270; J1650; J2405; J7030

== ENCOUNTER 2023-10-11 19:39 | Emergency (ER) | payer MEDICARE, BC ==
[2023-10-11 19:49] VITALS: BP 143/77; PULSE 60
[2023-10-11] MEDS: Proparacaine 0.5% Ophth Soln 15 ML Bottle EYERT ONE (19:58)
== END 2023-10-11 20:23 | disposition home or self-care (01) ==
LOC: JP.ED 19:39
DX: S05.01XA Injury of conjunctiva and corneal abrasion without foreign body, right eye, initial encounter (principal); Z86.16 Personal history of COVID-19; Z79.899 Other long term (current) drug therapy; X58.XXXA Exposure to other specified factors, initial encounter
CPT/HCPCS: 99283; A9270